=== PATIENT | male | born 1970 | race Caucasian/White ===

== ENCOUNTER 2022-06-06 14:57 | Outpatient (RCR) | payer OTHER ==
[~2022-06-06 14:57] MED LIST: HYDR-3583 PO; OMEP-10 PO; OMG1KC PO; SULF1TAB38 PO
== END 2022-06-13 | disposition home or self-care (01) ==
LOC: ONC 14:57
PROVIDERS: ATTEND Internal Medicine Hematology & Oncology
DX: C67.9 Malignant neoplasm of bladder, unspecified (principal)
CPT/HCPCS: 99204

== ENCOUNTER → 2022-06-08 | Outpatient (CLI) | payer OTHER | LOC: CARD 14:08 | PROVIDERS: ATTEND Internal Medicine | DX: I34.0 Nonrheumatic mitral (valve) insufficiency (principal); I51.89 Other ill-defined heart diseases | CPT/HCPCS: 93306 ==

== ENCOUNTER → 2022-06-12 | Outpatient (CLI) | payer OTHER ==
[~2022-06-12] MED LIST changes: +CATHETER FLUSH 10 ML SYR IVP PRN; +HEParin (CENTRAL IV FLUSH) 500 UNIT/5 ML SYR ONE
--- NOTE | 2022-06-13 16:29 | Cardiology Stress Test Report ---
Stress Test Report Date of Procedure/Referring: Date of Procedure: Jun 12, 2022 PCP Bianca Urena DO Admitting Physician Admitting Physician: Attending Physician: Bianca Urena DO Summary: Patient received 29.8 mCi of technetium 99 labeled RBCs, images acquired and rev iewed in 4 projections. Review of the images showed diffuse left ventricular hypokinesia, calculated ejection fraction 32% MUGA scan with ejection fraction 32% EVE LEARY MD Jun 13, 2022 16:29
== END ==
LOC: CARD 13:26
PROVIDERS: ATTEND Internal Medicine
DX: I51.89 Other ill-defined heart diseases (principal)
CPT/HCPCS: 78472; A9560

== ENCOUNTER → 2022-07-03 | Outpatient (CLI) | payer OTHER ==
[~2022-07-03] MED LIST changes: -HEParin (CENTRAL IV FLUSH) 500 UNIT/5 ML SYR ONE
[2022-07-03 09:48] VITALS: BP 105/72
--- NOTE | 2022-07-03 11:49 | Cardiology Stress Test Report ---
Stress Test Report Date of Procedure/Referring: Date of Procedure: Jul 03, 2022 PCP Bianca Urena DO Admitting Physician Admitting Physician: Attending Physician: Naseem Ann MD Indications: HTN Baseline Heart Rate: 84 Baseline Blood Pressure: Blood Pressure Systolic: 105 Blood Pressure Diastolic: 72 Baseline Vitals Vital Signs Date Time Temp Pulse Resp B/P (MAP) Pulse Ox O2 Delivery O2 Flow Rate FiO2 07/03/22 09:48 84 105/72 (83) Baseline EKG: Baseline EKG: NSR Summary After explaining the procedure to the patient, he signed a consent and then brought to the stress nuclear laboratory. Patient received 0.4 mg Lexiscan for stress test, ECG, heart rate and blood pressure were monitored continuously. Resting and stress dose of radio tracer were injected, imaging was acquired and reviewed in short axis, horizontal long axis and vertical long axis views. TID: 1.03 SSS: 11 SDS: 2 EF: 18 Patient tolerated Lexiscan well Patchy uptake with fixed defect in the inferior wall, reversible ischemia in the anterior wall and apex Dilated left ventricle with severe diffuse left ventricular hypokinesia, ejection fraction 18% Copy Copies To 1: BIANCA URENA BASHAR J MD Jul 03, 2022 11:49
== END ==
LOC: CARD 08:45
PROVIDERS: ATTEND Internal Medicine Cardiovascular Disease
DX: I10 Essential (primary) hypertension (principal); I25.10 Atherosclerotic heart disease of native coronary artery without angina pectoris
CPT/HCPCS: 78452; 93017; A9502

== ENCOUNTER 2022-07-12 14:00 | Day surgery (SDC) | payer OTHER ==
[~2022-07-12] VITALS: Ht 170.2 cm; Wt 69.9 kg
[2022-07-12] VITALS (11 sets, daily range): BP systolic 85–100; BP diastolic 57–74
--- NOTE | 2022-07-12 10:08 | Cardiac Procedure Note-CS/ASA ---
Pre-Procedure Note Pre-Op Procedure Note Date of Available H&P: Jul 03, 2022 Date H&P Reviewed: Jul 12, 2022 Time H&P Reviewed: 10:07 History & Physical: H&P Reviewed, Patient Examed, No changes noted Pre-Operative Diagnosis: CAD Conscious Sedation Pre-Proced Time 10:07 ASA Score 3 For ASA 3 and 4: Consider anesthesia and medical clearance. Also, for patients with a history of failed moderate sedation consider anesthesia. Airway Lungs Heart ASA score ASA 1: a normal healthy patient ASA 2: a patient with a mild systemic disease (mid diabetes, controlled hypertension, obesity ASA 3: a patient with a severe systemic disease that limits activity (angina, COPD, prior Myocardial infarction) ASA 4: a patient with an incapacitating disease that is a constant threat to life (CHF, renal failure) ASA 5: a moribund patient not expected to survive 24 hrs. (ruptured aneurysm) ASA 6: a declared brain- patient whose organs are being harvested. For emergent operations, add the letter E after the classification Mallampati Classification Grade 3 Sedation Plan Analgesia, Amnesia, Plan communicated to team members, Discussed options with patient/fam, Discussed risks with patient/fam The patient is an appropriate candidate to undergo the planned procedure, sedation, and anesthesia. The patient immediately re-assessed prior to indication. EVE LEARY MD Jul 12, 2022 10:08
[2022-07-12 10:14] LABS: HEMATOCRIT 37 % (40-54); HEMOGLOBIN 12.9 g/dL (13.3-17.7); MEAN CORPUSCULAR HEMOGLOBIN 30 pg (25-34); MEAN CORPUSCULAR HGB CONC 35 g/dL (32-36); MEAN CORPUSCULAR VOLUME 86 fL (80-99); MEAN PLATELET VOLUME 11.5 fL (9.0-12.2); PLATELET COUNT 169 10^3/uL (130-400); WHITE BLOOD COUNT 5.1 10^3/uL (4.3-11.0)
--- NOTE | 2022-07-12 10:19 | Diagnostic Imaging Report ---
INDICATION: Precath evaluation, coronary disease is suspected. FINDINGS: No failure, effusion, or pneumothorax. IMPRESSION: Normal frontal chest. Dictated by: Dictated on workstation # [id number]
[2022-07-12 10:42] LABS: BILIRUBIN,URINE NEGATIVE (NEGATIVE); CLARITY,URINE CLEAR; COLOR,URINE YELLOW; GLUCOSE, URINE (UA) NEGATIVE (NEGATIVE); KETONES,URINE NEGATIVE (NEGATIVE); LEUKOCYTE ESTERASE ,URINE NEGATIVE (NEGATIVE); NITRITE,URINE NEGATIVE (NEGATIVE); PROTEIN,URINE NEGATIVE (NEGATIVE)
[2022-07-12 10:51] LABS: BACTERIA,URINE NEGATIVE /HPF
[2022-07-12 10:58] LABS: PROTHROMBIN TIME PATIENT 13.5 SEC (12.2-14.7)
[2022-07-12 11:01] LABS: ALBUMIN 4.1 GM/DL (3.2-4.5); BILIRUBIN,TOTAL 0.5 MG/DL (0.1-1.0); CALCIUM 9.3 MG/DL (8.5-10.1); CREATININE SERUM 0.78 MG/DL (0.60-1.30); POTASSIUM 3.7 MMOL/L (3.6-5.0); TOTAL PROTEIN 7.2 GM/DL (6.4-8.2)
--- NOTE | 2022-07-12 11:22 | Discharge Inst-Post CATH ---
Discharge Inst-CATH/EP Problems Reviewed?: Yes Post Cardiac Cath/EP D/C Inst Follow Up/Plan Appointment with Dr. Ann's office in 4 weeks <b>CARDIAC CATH/EP PROCEDURE DISCHARGE INSTRUCTIONS</b> ACTIVITY * Go Home directly and rest. * Limit activity of the leg (or wrist if it was used) for 7 days including aerobics, swimming, jogging, bicycling, etc. * Restrict stair-climbing for 7 days if possible, if not, climb up with your non-cath leg, then bring together on the same step. * Avoid lifting, pushing, pulling or excessive movement of the affected extremity for 7 days. * Customary sexual activity may be resumed after 2 days-use caution not to use a position that strains or causes pain to the affected extremity. * No driving for 24 hours. * NO SMOKING. * Avoid straining for bowel movements for 7 days. * Gentle walking on level ground is allowed. * Returning to work will depend on the type of procedure and the results. Your doctor will discuss this with you. CALL YOUR DOCTOR FOR ANY OF THE FOLLOWING: *If bleeding from the puncture site occurs- Apply gentle pressure to site with clean cloth and call your doctor or EMS. * If a knot or lump forms under the skin, increases in size, or causes pain. * If bruising appears to be worsening or moving further down your leg instead of disappearing. * Temperature above 101 F. CARE OF YOUR GROIN INCISION; * Bruising or purple discoloration of the skin near the puncture site is common. * You may shower only, no bathtub bathing for 5 days. Be careful to avoid slipping as your leg may feel stiff. * If a closure device was used on your femoral artery, please see the attached guide regarding care of the device and your leg. * Leave dressing on FOR 24 hours. CARE OF YOUR WRIST INCISION; * Bruising or purple discoloration of the skin near the puncture site is common. * You may shower. * DO NOT submerge wrist. * Leave dressing on FOR 24 hours. EVE ANN MD Jul 12, 2022 11:22
--- NOTE | 2022-07-12 11:24 | Cardiac Cath Report ---
Cardiac Cath Report Physician (s)/Utilities Operator (s) Physician EVE LEARY MD Pre-Procedure Diagnosis Pre-Procedure Diagnosis: CAD Post-Procedure Note Procedure Start Date: Jul 12, 2022 Procedure Start Time: 11:22 Name of Procedure: Left heart catheterization Findings/Procedure Note PROCEDURE NOTE: 52 years old gentleman with severe cardiomyopathy, had an abnormal stress test, scheduled for cardiac catheterization possible PTCA. After explaining the procedure to the patient, all pros and cons were explained, all questions were answered. The patient signed the consent and then he was placed in the cardiac catheterization laboratory. Groin was prepped in SL fashion local anesthesia was used. Sheath placed in the right radial artery, [place] catheter was advanced to the left ventricular cavity, pressure was me asured, pullback LV to aorta was done, engage the right and left coronary system, multiple views were obtained. At the end of the procedure the sheath was removed. Vascular band was used FINDINGS: Hemodynamics LV 86/15, end-diastolic pressure of 15 Aorta 80/58 mean of 36 ANATOMY: Left Main is free of obstructive disease Left Anterior Descending is free of obstructive disease Left Circumflex is free of obstructive disease Right Coronary Artery is dominant artery free of obstructive disease LV Gram was not done, pressure was measured CONCLUSION: No significant obstructive coronary artery disease Nonischemic cardiomyopathy, known ejection fraction to be around 25 to 30% DISCUSSION AND RECOMMENDATION: Continue to maximize medical therapy Anesthesia Type: Conscious Sedation Estimated blood loss (mL): 10 ml Contrast Amount: 24 ml Total Radiation Dose: 123 mGy Post-Procedure Diagnosis Post-operative diagnosis: Congestive heart failure, chronic compensated left ventricular systolic dysfunction, nonischemic cardiomyopathy Coronary artery disease Hyperlipidemia Ventricular tachycardia EVE LEARY MD Jul 12, 2022 11:24
[~2022-07-12 14:00] MED LIST changes: +ACET325T38 PO; +CARV3.122 PO; -CATHETER FLUSH 10 ML SYR IVP PRN; +HEParin (CATH LAB) 2,000 ML IV ONE; +HEParin 1000 UNIT/ML (10ML VIAL) FOR BOLUS ONE; +LIDOCAINE 1% INJ 20 ML VIAL ONE; +LORA10TA76 PO; +MIDAZOLAM 5 MG/5 ML (VERSED) VIAL ONE; +MULT-1136 PO; +NITRO DRIP 25000 MCG/D5W 250 ML IV ONE; +NS IV 1000 ML 1,000 ML IV SCH; +NS IV 1000 ML 1,000 ML ONE; +OMEP20TA33 PO; +SACU1TAB7 PO; +VERAPAMIL 5 MG/2 ML (CALAN) VIAL IV ONE; +fentaNYL INJ 100 MCG/2 ML AMP ONE
== END 2022-07-12 14:40 | disposition home or self-care (01) ==
LOC: CATH 14:00
PROVIDERS: ATTEND Internal Medicine Cardiovascular Disease
DX: I11.0 Hypertensive heart disease with heart failure (principal); I50.22 Chronic systolic (congestive) heart failure; I25.10 Atherosclerotic heart disease of native coronary artery without angina pectoris; I42.8 Other cardiomyopathies; I47.20 Ventricular tachycardia, unspecified; I34.0 Nonrheumatic mitral (valve) insufficiency; I45.19 Other right bundle-branch block; C67.9 Malignant neoplasm of bladder, unspecified; E78.5 Hyperlipidemia, unspecified; K21.9 Gastro-esophageal reflux disease without esophagitis; R73.03 Prediabetes; A77.9 Spotted fever, unspecified; Z85.51 Personal history of malignant neoplasm of bladder; Z85.6 Personal history of leukemia; Z79.899 Other long term (current) drug therapy
CPT/HCPCS: 71045; 80053; 80061; 81000; 85027; 85610; 85730; 87081; 93005; 93458; C1894; 36415

== ENCOUNTER 2022-07-24 16:50 | Emergency (ER) | payer OTHER ==
[~2022-07-24] VITALS: Ht 170 cm; Wt 68.0 kg
[~2022-07-24 16:50] MED LIST changes: -HEParin (CATH LAB) 2,000 ML IV ONE; -HEParin 1000 UNIT/ML (10ML VIAL) FOR BOLUS ONE; -LIDOCAINE 1% INJ 20 ML VIAL ONE; -MIDAZOLAM 5 MG/5 ML (VERSED) VIAL ONE; -NITRO DRIP 25000 MCG/D5W 250 ML IV ONE; -NS IV 1000 ML 1,000 ML IV SCH; -NS IV 1000 ML 1,000 ML ONE; -VERAPAMIL 5 MG/2 ML (CALAN) VIAL IV ONE; -fentaNYL INJ 100 MCG/2 ML AMP ONE
[2022-07-24 17:11] LABS: BASOPHILS # (AUTO) 0.1 10^3/uL (0.0-0.1); BASOPHILS % (AUTO) 1 % (0-10); EOSINOPHILS # (AUTO) 0.2 10^3/uL (0.0-0.3); EOSINOPHILS % (AUTO) 3 % (0-10); HEMATOCRIT 41 % (40-54); HEMOGLOBIN 13.9 g/dL (13.3-17.7); LYMPHOCYTES # (AUTO) 1.8 10^3/uL (1.0-4.0); LYMPHOCYTES % (AUTO) 27 % (12-44); MEAN CORPUSCULAR HEMOGLOBIN 29 pg (25-34); MEAN CORPUSCULAR HGB CONC 34 g/dL (32-36); MEAN CORPUSCULAR VOLUME 86 fL (80-99); MEAN PLATELET VOLUME 11.2 fL (9.0-12.2); MONOCYTES # (AUTO) 0.6 10^3/uL (0.0-1.0); MONOCYTES % (AUTO) 9 % (0-12); NEUTROPHILS # (AUTO) 3.9 10^3/uL (1.8-7.8); NEUTROPHILS % (AUTO) 60 % (42-75); PLATELET COUNT 237 10^3/uL (130-400); WHITE BLOOD COUNT 6.5 10^3/uL (4.3-11.0)
[2022-07-24 17:13] LABS: ALBUMIN 4.6 GM/DL (3.2-4.5); CHLORIDE 104 MMOL/L (98-107); POTASSIUM 3.8 MMOL/L (3.6-5.0); SODIUM 140 MMOL/L (135-145)
[2022-07-24 17:15] LABS: GLUCOSE 105 MG/DL (70-105)
[2022-07-24] MEDS ORDERED: ASPIRIN 81 MG CHEW (CHILDREN'S ASA) PO ONE (17:15)
[2022-07-24 17:16] LABS: PROTHROMBIN TIME PATIENT 13.2 SEC (12.2-14.7)
[2022-07-24 17:17] LABS: BILIRUBIN,TOTAL 0.3 MG/DL (0.1-1.0); CARBON DIOXIDE 25 MMOL/L (21-32)
[2022-07-24 17:19] LABS: ALKALINE PHOSPHATASE 100 U/L (40-136); CREATININE SERUM 0.91 MG/DL (0.60-1.30); GFR ESTIMATED 103
[2022-07-24 17:20] LABS: BUN/CREATININE RATIO 20
--- NOTE | 2022-07-24 17:20 | ED Chest Pain ---
General Chief Complaint: Chest Pain Stated Complaint: CHEST PRESSURE/LEFT SIDE TINGLING Nursing Triage Note: PT AMBULATORY TO ER. PT REPORTS AROUND 1400 TODAY, HAD A LEFT SIDE CHEST PRESSURE, LASTED APPROX 15 MINUTES THEN RESOLVED. PT REPORTS THEN STARTED HAVING TINGLING DOWN HIS L ARM WHICH WAS CONCERNING TO HIM. PT CURRENTLY HAVE A LIFE-VEST IN PLACE. PT SEE'S DR ANN FOR CARDIOLOGY. Source: patient Exam Limitations: no limitations History of Present Illness Date Seen by Provider: Jul 24, 2022 Time Seen by Provider: 17:16 Initial Comments Patient is a 52-year-old male with a history of hypertension, CHF hyperlipidemia, V. 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 Symptoms started around 2 PM. Started having center chest pressure. Chest pressure lasted for about 45 minutes. Around 4 PM started having numbness and tingling on left side his face and left arm. That those symptoms have improved. Noted some coolness to his left arm and left foot. Patient drove over from [employer]. Did not have any difficulty driving. Denies headache, dizziness, visual changes, unilateral muscle weakness, shortness of breath, cough, fever, chills. Patient had cardiac catheterization on July [address] Ann. Had no significant obstructive coronary artery disease. Nonischemic cardiomyopathy with ejection fraction of 25 to 30%. Patient does have a LifeVest. Scheduled to follow-up with infectious disease tomorrow to find the cause of the cardiomyopathy. Patient is currently asymptomatic. Patient denies nausea, vomiting, diarrhea, fever. Patient is currently taking Entresto and carvedilol. Allergies and Home Medications Allergies Coded Allergies: prednisone (Unverified Allergy, Unknown, INCREASED BP AND HEART RATE, 06/08/22) Patient Home Medication List Home Medication List Reviewed: Yes Acetaminophen (Tylenol) 325 Mg Tablet, 650 MG PO Q6H PRN for PAIN-MILD (1-4), (Reported) Entered as Reported by: KEITH ERAZO on 07/12/22 1026 Carvedilol (Carvedilol) 3.125 Mg Tablet, 3.125 MG PO BID, (Reported) Entered as Reported by: KEITH ERAZO on 07/12/22 1026 Loratadine (Claritin) 10 Mg Tablet, 10 MG PO DAILY, (Reported) Entered as Reported by: KEITH ERAZO on 07/12/22 1026 Multivitamin (Multivitamin) 1 Each Tablet, 1 EACH PO DAILY, (Reported) Entered as Reported by: KIETH ERAZO on 07/12/22 1026 Omeprazole Magnesium (Prilosec Otc) 20 Mg Tablet.dr, 20 MG PO DAILY, (Reported) Entered as Reported by: KEITH ERAZO on 07/12/22 1026 Sacubitril/Valsartan (Entresto 49 mg-51 mg Tablet) 49 Mg-51 Mg Tablet, 1 TAB PO BID, (Reported) Entered as Reported by: KEITH ERAZO on 07/12/22 1026 Review of Systems Review of Systems Constitutional: No chills, No diaphoresis, No malaise, No weakness EENTM: No Eye Pain Respiratory: Denies Cough, Denies Orthopnea Cardiovascular: Chest Pain Gastrointestinal: Denies Abdominal Pain, Denies Nausea, Denies Vomiting Genitourinary: Denies Burning, Denies Discharge, Denies Drainage, Denies Frequency Musculoskeletal: No back pain, No joint pain Skin: No change in color, No change in hair/nails Psychiatric/Neurological: Denies Anxiety, Denies Depressed All Other Systems Reviewed Negative Unless Noted: Yes Past Mdftqry-Pkfhzr-Swmqlz Hx Patient Social History Tobacco Use?: No Use of E-Cig and/or Vaping dev: No Substance use?: No Alcohol Use?: No Pt feels they are or have been: No Immunizations Up To Date First/Initial COVID19 Vaccinat: RECEIVED, UNK WHEN COVID19 Vaccine 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 oz. kg; 23.00 BMI Method: General Appearance: No Apparent Distress, WD/WN HEENT: PERRL/EOMI, TMs Normal, Normal ENT Inspection, Pharynx Normal Neck: Full Range of Motion, Normal Inspection, Non Tender, Supple Respiratory: Chest Non Tender, Lungs Clear, Normal Breath Sounds, No Accessory Muscle Use, No Respiratory Distress Cardiovascular: Regular Rate, Rhythm, No Edema, No Gallop, No JVD Gastrointestinal: Normal Bowel Sounds, No Organomegaly, No Pulsatile Mass Rectal: Normal Exam, Normal Rectal Tone Extremity: Normal Capillary Refill, Normal Inspection, Normal Range of Motion, Non Tender Neurologic/Psychiatric: Alert, Oriented x3, No Motor/Sensory Deficits, Normal Mood/Affect, equity trader II-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 Norm as Tested Skin: Normal Color, Warm/Dry Progress/Results/Core Measures Results/Orders Lab Results Laboratory Tests Test 07/24/22 16:57 07/24/22 19:28 Range/Units White Blood Count 6.5 4.3-11.0 10^3/uL Red Blood Count 4.79 4.30-5.52 10^6/uL Hemoglobin 13.9 13.3-17.7 g/dL Hematocrit 41 40-54 % Mean Corpuscular Volume 86 80-99 fL Mean Corpuscular Hemoglobin 29 25-34 pg Mean Corpuscular Hemoglobin Concent 34 32-36 g/dL Red Cell Distribution Width 13.0 10.0-14.5 % Platelet Count 237 130-400 10^3/uL Mean Platelet Volume 11.2 9.0-12.2 fL Immature Granulocyte % (Auto) 0 % Neutrophils (%) (Auto) 60 42-75 % Lymphocytes (%) (Auto) 27 12-44 % Monocytes (%) (Auto) 9 0-12 % Eosinophils (%) (Auto) 3 0-10 % Basophils (%) (Auto) 1 0-10 % Neutrophils # (Auto) 3.9 1.8-7.8 10^3/uL Lymphocytes # (Auto) 1.8 1.0-4.0 10^3/uL Monocytes # (Auto) 0.6 0.0-1.0 10^3/uL Eosinophils # (Auto) 0.2 0.0-0.3 10^3/uL Basophils # (Auto) 0.1 0.0-0.1 10^3/uL Immature Granulocyte # (Auto) 0.0 0.0-0.1 10^3/uL Prothrombin Time 13.2 12.2-14.7 SEC INR Comment 1.0 0.8-1.4 Activated Partial Thromboplast Time 39 H 24-35 SEC Sodium Level 140 135-145 MMOL/L Potassium Level 3.8 3.6-5.0 MMOL/L Chloride Level 104 98-107 MMOL/L Carbon Dioxide Level 25 21-32 MMOL/L Anion Gap 11 5-14 MMOL/L Blood Urea Nitrogen 18 7-18 MG/DL Creatinine 0.91 0.60-1.30 MG/DL Estimat Glomerular Filtration Rate 103 BUN/Creatinine Ratio 20 Glucose Level 105 70-105 MG/DL Calcium Level 10.0 8.5-10.1 MG/DL Corrected Calcium 8.5-10.1 MG/DL Magnesium Level 2.3 1.6-2.4 MG/DL Total Bilirubin 0.3 0.1-1.0 MG/DL Aspartate Amino Transf (AST/SGOT) 24 5-34 U/L Alanine Aminotransferase (ALT/SGPT) 28 0-55 U/L Alkaline Phosphatase 100 40-136 U/L Myoglobin 31.4 10.0-92.0 NG/ML Troponin I < 0.028 < 0.028 <0.028 NG/ML B-Type Natriuretic Peptide 312.8 H <100.0 PG/ML Total Protein 8.0 6.4-8.2 GM/DL Albumin 4.6 H 3.2-4.5 GM/DL Lipase 56 8-78 U/L My Orders Orders - SALINA LANIER PA Cbc With Automated Diff (07/24/22 17:05) Magnesium (07/24/22 17:05) Chest 1 View, Ap/Pa Only (07/24/22 17:05) Ekg Tracing (07/24/22 17:05) Comprehensive Metabolic Panel (07/24/22 17:05) Myoglobin Serum (07/24/22 17:05) Protime With Inr (07/24/22 17:05) Partial Thromboplastin Time (07/24/22 17:05) Monitor-Rhythm Ecg Trace Only (07/24/22 17:05) Ed Iv/Invasive Line Start (07/24/22 17:05) Lipase (07/24/22 17:05) Bnp Andrew (07/24/22 17:05) Troponin I Beth (07/24/22 17:05) Aspirin Chewable Tablet (Baby Aspirin Ch (07/24/22 17:15) Troponin I Beth (07/24/22 19:03) Medications Given in ED Current Medications Medications Dose Ordered Sig/Marco Route Start Time Stop Time Status Last Admin Dose Admin Aspirin 324 mg ONCE ONCE PO 07/24/22 17:15 07/24/22 17:16 DC 07/24/22 17:11 324 MG Vital Signs/I&O 07/24/22 07/24/22 07/24/22 07/24/22 16:54 18:11 18:41 20:25 Temp 36.4 36.4 Pulse 92 82 81 76 Resp 18 18 16 B/P (MAP) 124/79 (94) 106/77 (87) 102/79 (87) 107/78 Pulse Ox 98 98 98 98 O2 Delivery Room Air Room Air Room Air Blood Pressure Mean: 94 Departure Communication (PCP) Reviewed previous H&P's, lab testing, imaging, cardiac work-up. Patient with a history of nonischemic cardiomyopathy. Unknown etiology. Currently on Entestro and carvedilol. Denies blood thinners or diuretics. Patient had a cardiac catheterization performed by Dr. Ann cardiology on July 12 that showed no significant obstructive coronary artery disease, nonschema cardiomyopathy known ejection fraction to be around 25 to 30%. Patient is scheduled to follow-up with infectious disease tomorrow for potential infectious cause of the cardiomyopathy. Patient without any flulike symptoms. Due to the current presentation of chest pain, left arm and left sided neck and face numbness cardiac work-up was initiated. Patient had no focal neural deficits such as unilateral muscle weakness, facial droop, slurred speech, headache, visual changes. Would not suspect a post cath stroke thrombolytic event 13 days after the catheterization. Imaging of the head was held at this time. EKG showed sinus rhythm at 91 bpm, QRS duration 121 MS, QTc 453 MS. Age entered determinant Q waves in V3 V4. EKG looks very similar to the EKG he had performed on 07/12/2022. No specific changes. Does have a LifeVest. I was not able to interrogate the LifeVest. History of abnormal EKG V. tach. Patient was given a full aspirin. No current symptoms at this time. CBC, CMP, troponin, BNP, chest x-ray was ordered. Patient lab work was otherwise unremarkable. Chest x-ray was negative for pneumonia, pleural effusion, pneumothorax, mediastinal widening. Initial troponin negative. Serial 2-hour troponin negative. BNP 312. Patient does not appear to be fluid overload. Diuretic was held at this time. Attempted to consult Dr. Ann plastic parts fabricator who takes care of patient but is currently on vacation. Consulted Dr. Alberts cardiology regarding patient's results. Since patient had a reassuring cardiac catheterization on the first of July with reassuring troponins and lab work today. Recommends continue follow-up outpatient. If any symptoms become worse to return back to ED consider observation. I do agree with plan of action. Follow-up outpatient Richard with cardiology. Impression Primary Impression: Chest pain Disposition: HOME, SELF-CARE Condition: Stable Departure-Patient Inst. Decision time for Depature: 20:01 Referrals: ALVARO ECHEVERRIA DO (PCP/Family) Primary Care Physician Patient Instructions: Chest Pain (DC) Add. Discharge Instructions: If any worsening symptoms return back to ED for further evaluation. Continue with your follow-up visit tomorrow and follow-up with cardiology outpatient All discharge instructions reviewed with patient and/or family. Voiced understanding. SALINA LANIER Jul 24, 2022 17:20
[2022-07-24 17:22] LABS: ALANINE AMINOTRANSFERASE 28 U/L (0-55); MAGNESIUM 2.3 MG/DL (1.6-2.4)
[2022-07-24 17:23] LABS: LIPASE 56 U/L (8-78)
--- NOTE | 2022-07-24 17:31 | Diagnostic Imaging Report ---
INDICATION: Left-sided chest pain Portable chest 5:22 PM Heart size and pulmonary vascularity are normal. Lungs are clear. There are no effusions or pneumothoraces. IMPRESSION: No acute abnormalities in the chest Dictated by: Dictated on workstation # [id number]
[2022-07-24 20:25] VITALS: BP 107/78
== END 2022-07-24 20:24 | disposition home or self-care (01) ==
LOC: EDUNIT# 16:50 → ER 16:52
DX: R07.89 Other chest pain (principal); R20.0 Anesthesia of skin; I11.0 Hypertensive heart disease with heart failure; I50.9 Heart failure, unspecified; Z79.899 Other long term (current) drug therapy; Z28.311 Partially vaccinated for COVID-19
CPT/HCPCS: 36415; 71045; 80053; 83690; 83735; 83874; 83880; 84484; 85025; 85610; 85730; 93005; 93041

== ENCOUNTER → 2022-09-11 | Outpatient (CLI) | payer OTHER | LOC: CARD 15:00 | PROVIDERS: ATTEND Physician Assistant | DX: I11.0 Hypertensive heart disease with heart failure (principal); I34.0 Nonrheumatic mitral (valve) insufficiency | CPT/HCPCS: 93306 ==

== ENCOUNTER → 2022-12-14 | Outpatient (CLI) | payer OTHER | LOC: CARD 08:34 | PROVIDERS: ATTEND Internal Medicine Cardiovascular Disease | DX: I11.9 Hypertensive heart disease without heart failure (principal); I08.0 Rheumatic disorders of both mitral and aortic valves; I25.10 Atherosclerotic heart disease of native coronary artery without angina pectoris | CPT/HCPCS: 93306 ==

== ENCOUNTER → 2022-12-29 | Outpatient (CLI) | payer OTHER ==
[~2022-12-29] MED LIST changes: +CATHETER FLUSH 10 ML SYR IVP PRN; +HEParin (CENTRAL IV FLUSH) 500 UNIT/5 ML SYR ONE
--- NOTE | 2023-01-01 10:21 | Cardiology Stress Test Report ---
Stress Test Report Date of Procedure/Referring: Date of Procedure: Dec 29, 2022 PCP Bianca Urena DO Admitting Physician Admitting Physician: Attending Physician: Naseem Ann MD Indications: CHF Summary: Patient received 30.8 mCi of technetium 99 tagged RBCs MUGA scan was done, images were acquired and reviewed and 4 projections Review of the images showed diffuse left ventricular hypokinesia, calculated ejection fraction 35%, improvement compared to the previous study MUGA scan with ejection fraction 35%, improvement compared to the previous study Copy Copies To 1: IBANCA URENA BASHAR J MD Jan 01, 2023 10:21
== END ==
LOC: CARD 13:38
PROVIDERS: ATTEND Internal Medicine Cardiovascular Disease
DX: I50.9 Heart failure, unspecified (principal)
CPT/HCPCS: 78472; A9560